=== PATIENT | male | born 1945 | race Caucasian/White ===

== ENCOUNTER 2017-06-28 15:44 | Inpatient (IN) | payer OTHER ==
[~2017-06-28] VITALS: Ht 180.3 cm; Wt 59.0 kg
--- NOTE | ~2017-06-28 | DS ---
Unit #: [id number] #: [id number] Patient: STEPH MAXWELL [id number] [facility]. [address] [address] [id number] I MR#: [id number] NAME: STEPH MAXWELL ROOM: 315 Age: 72 Sex: M Admission Date: 06/28/2017 : 1945 Discharge Date: 07/03/2017 Attending Physician: Isrrael Emanuel M.D. Primary Care Physician: Karrie Valente M.D. DISCHARGE SUMMARY DISCHARGE DIAGNOSES 1. Gastrointestinal bleed, status post Gastroenterology evaluation, status post EGD with cauterization, on b.i.d. proton pump inhibitor. Last hemoglobin and hematocrit was stable from July 02 at 9.2 and 25.8. Continue b.i.d. proton pump inhibitor. Outpatient followup with Gastroenterology. 2. Anemia secondary to #1, status post transfusion. Stable. 3. Chronic kidney disease. Stable. 4. History of coronary artery disease, status post Cardiology evaluation, status post Cardiolite stress which was negative for ischemia. Stable from cardiac standpoint to be discharged. Outpatient followup with Cardiology. DISCHARGE MEDICATIONS 1. Magnesium oxide 400 at 1 tablet b.i.d. 2. Protonix 40 mg b.i.d. 3. Home vitamin B12 at 1000 mcg p.o. daily. 4. Ferrous sulfate 1 tablet daily, home med. 5. Plavix 75 mg daily. 6. Synthroid 0.05 mg p.o. daily. 7. Nitrostat p.r.n. 8. Folic acid 1 mg daily. 9. Topical steroid cream b.i.d. 10. Flomax 0.4 mg daily. 11. Paxil 30 mg daily. 12. Claritin 10 mg daily. 13. Lipitor 40 mg at bedtime. 14. Norvasc 5 mg daily. DISPOSITION Going home, status post evaluation from PT/OT. Stable to go home with outpatient followup with primary care physician in two to three days and outpatient followup with Cardiology and GI. CONSULTS DURING THIS HOSPITAL STAY 1. Dr. St. 2. Dr. Maldonado. LABS, DIAGNOSTICS, AND PROCEDURES DURING THIS HOSPITAL STAY 1. EGD per Dr. St: Found with a large 1.8 cm posterior duodenal ulcer with a visible vessel. No active bleeding. Was injected with epinephrine. Biopsy for mild gastritis was taken. 2. CT head on admission: Atrophy with chronic ischemic changes. No clearly acute intracranial process. Unit #: [id number] #: [id number] Patient: STEPH MAXWELL 3. CT abdomen and pelvis: No acute abnormality. Please see the report. 4. Chest x-ray: Chronic changes in the lung. No active disease. HISTORY OF PRESENT HOSPITAL STAY Please refer to H and P done by my colleague, Dr. Emanuel, for initial presentation on this gentleman. ACTIVE PROBLEMS DIAGNOSED GI bleed, status post EGD report as above. Continue b.i.d. PPI. Outpatient followup with GI. Anemia, as above, status post transfusion. Stable. CKD. Stable. History of coronary artery disease, status post Cardiology evaluation, status post negative Cardiolite stress. Continue home medications. Dyslipidemia. Continue statin. DISCHARGE INSTRUCTIONS 1. Disposition home with home health. 2. Outpatient followup with Cardiology, GI, and primary care physician. 1. Dictated by... Karly Parks/rowena TD: 07/03/2017 16:33 JOB #: [id number] DISCHARGE SUMMARY Page 1 of 1 X Thiago Christian MD X DISCHARGE SUMMARY
--- NOTE | ~2017-06-28 | A ---
[facility] Nutrition Therapy DATE: 06/30/17 Patient: STEPH MAXWELL Physician: DEWAYNE Address: [address] [place] [address] Room/Bed: [address] [place] [address], Zip: [place] [address] Admit Date: 06/28/17 Date of : [birth year] Height: 5 11 Weight: 123 56.2 NUTRITIONAL ASSESSMENT: REASON: Low BMI Admitting dx: 72 y/o male admitted with generalized weakness, bloody stools, increased confusion PMH: PAD, CVA, CAD, CKD, HTN, peptic ulcer disease Anthropometrics: Ht: 71", Wt: 123 lbs, BMI: 17 (underweight), past weight ranges: 98-136 lbs Labs: BUN 28, creat 1.5, GFR 46.5 Meds: Folic acid, synthroid, PPI, IVF, Nacl, Kcl I/O & Bowel function: BM 9/3 (medium, dark) Skin Integrity: No issues, no edema Assessment: Chart reviewed, events noted. See admitting dx and PMH as stated above. CT head/abdomen/pelvis and CXR showed nothing acute. Small-moderate hiatal hernia noted. Pt found to have GI bleed. He currently lives with his sister who helps with his care. He is clinically underweight with past weights ranging from 98-136 lbs. His weight has been known to fluctuate like this over the years. RD previously assessed on 10/30/16- note reviewed. Patient weighed 135 lbs at that time. Although he scored 0 points on the malnutrition risk screen and reports no known recent weight loss, I suspect ~12 lb weight loss since the beginning of this year. He is currently NPO for possible GI scope (was on clears for 1 meal yesterday). See RD recs below, will follow. Dx: 1) Underweight r/t medical history, inconsistent PO intakes AEB BMI 17. 2) Inadequate energy intake r/t diet not yet advanced, clinical condition AEB NPO/clears x 2 days. Intervention: Diet as tolerated + ONS Monitoring, Evaluation and Goals: 1. Tolerance of oral diet advancement. 2. Gradual weight gain towards a healthy BMI range. 3. Promote regular GI fx. [facility] Nutrition Therapy DATE: 06/30/17 Patient: STEPH MAXWELL Physician: DEWAYNE Address: [address] [facility] Room/Bed: [address] [place] [address], Zip: [place] [address] Admit Date: 06/28/17 Date of : [birth year] Height: 5 11 Weight: 123 56.2 Monitor: per protocol, criteria to determine if above goals met Recommendations: 1. Once appropriate, advance oral diet as tolerated to GI soft diet. Once GI bleed resolved can change to regular diet. Appreciate GI recs. 2. Once diet is advanced to solid foods please order chocolate Ensure pudding BID to promote weight gain and ensure adequate kcal/protein intake. 3. Please weigh q 3 days for monitoring purposes, as the patient is clinically underweight. RD will follow Mild-moderate nutrition risk Respectfully, Tana Ha RD, [employer] [facility] cc: client file
--- NOTE | ~2017-06-28 | OR ---
Unit #: [id number] #: [id number] Patient: STEPH MAXWELL [id number] [address] [place], [place] [address] [id number] MR#: [id number] NAME: STEPH MAXWELL ROOM: [facility] Date of Procedure: 06/30/2017 Admission Date: 06/28/2017 Surgeon: Harshil St M.D. : 1945 Attending Physician: Isrrael Emanuel M.D. Primary Care Physician: Karrie Valente M.D. OPERATIVE REPORT PRIMARY CARE PHYSICIAN Karrie Valente M.D. PREOPERATIVE DIAGNOSES 1. The patient presented with upper gastrointestinal bleed. 2. Anemia of acute gastrointestinal blood loss. PROCEDURES PERFORMED 1. Upper gastrointestinal endoscopy and biopsy. 2. Upper gastrointestinal endoscopy and hemorrhage control. POSTOPERATIVE DIAGNOSES 1. The patient had a large 1.8 cm posterior duodenal ulcer with a visible vessel. No active bleeding was noted at the time of examination and visible vessel was ablated with heater probe application after 1:10,000 epinephrine injection intramucosally. 2. In addition, the patient had mild antral gastritis. Biopsy was obtained from the antrum for CLOtest. 3. There was also presence of medium-sized hiatus hernia. RECOMMENDATIONS We will obtain CBC at 4 p.m. and tomorrow morning. Clear liquid diet be advanced as tolerated. The patient is being started on Protonix infusion after intravenous 80 mg IV over 1 hour followed by 8 mg/hour continuous infusion. The hemoglobin and hematocrit will require sequential followup. It is very important that the patient be on long-term b.i.d. PPI therapy as he has had recurrent bleeds in the past from the same source. SEDATION USED MAC. DESCRIPTION OF PROCEDURE Following detailed explanation of the potential risks and complications of an upper endoscopy, namely perforation, bleeding, and complications related to sedation, the patient was brought to GI lab and laid in the left lateral decubitus position. Lubricated tip of the Olympus video upper endoscope was passed through bite block into the proximal esophagus under direct vision. The entire esophageal mucosa was examined and appeared normal. The patient did have a medium-sized hiatus hernia. The scope was then advanced into the gastric cavity and the latter was insufflated. Mucosa of the fundus, body, and antrum was examined and mild prepyloric antral erythema erosions noted indicating antral gastritis. Unit #: [id number] #: [id number] Patient: STEPH MAXWELL Pylorus was intubated with visualization of the normal duodenal bulb and second and third part of the duodenum. The scope was then advanced past the pylorus into the duodenum, the duodenal bulb was examined, a large posterior duodenal ulcer was noted, this was about 1.8 cm in size with grayish-white ulcer base on a clearcut visible vessel. The second and third part of duodenum were normal. Upon withdrawal and retroflexion, incisura, cardia, and greater curve examined and biopsy obtained from the antrum for CLOtest. The attention was then focused on the visible vessel after injection of 2 mL of 1:10,000 epinephrine around the vessel. The visible vessel was ablated using heater probe application. Excellent hemostasis was achieved and photodocumentation was obtained. The scope was then withdrawn in the distal esophagus. The entire esophageal mucosa was examined all the way up to pharynx, no additional findings noted. The patient tolerated the procedure without any postprocedure complications. Dictated by... Karly Varma/kelvin TD: 06/30/2017 14:04 JOB #: [id number] OPERATIVE REPORT Page 1 of [address] MD X PROCEDURE OPERATIVE NOTE
--- NOTE | ~2017-06-28 | EKG ---
PATIENT: STEPH MAXWELL UNIT #: [id number] Ventricular Rate: 85 BPM Atrial Rate: 85 BPM P-R Interval: 144 ms QRS Duration: 92 ms Q-T Interval: 424 ms QTC Calculation(Bezet): 504 ms P [place]: 72 degrees Calculated R [place]: 67 degrees Calculated T [place]: 126 degrees Diagnosis Line: Normal sinus rhythm Diagnosis Line: ST and T wave abnormality, consider anterolateral Diagnosis Line: ischemia Diagnosis Line: Prolonged QT Diagnosis Line: Abnormal ECG Diagnosis Line: When compared with ECG of 27-NOV-2016 04:36, Diagnosis Line: Premature atrial complexes are no longer Present Diagnosis Line: T wave inversion now evident in Lateral leads Diagnosis Line: Confirmed by LD GONG MD ([id number]) on Diagnosis Line: 06/29/2017 5:01:53 PM INTERPRETING MD: EDER
--- NOTE | ~2017-06-28 | CO ---
Unit #: [id number] #: [id number] Patient: STEPH CHRISTIE [id number] [facility]. [address] [place], [place] [address] [id number] I MR#: [id number] NAME: STEPH CHRISTIE ROOM: 315 Age: 72 Sex: M Admission Date: 06/28/2017 : 1945 Attending Physician: Isrrael Emanuel M.D. Primary Care Physician: Karrie Valente M.D. Consultation Date: 06/30/2017 CONSULTATION REPORT REASON FOR CONSULTATION GI bleed. PRIMARY CARE PHYSICIAN Karrie Valente M.D. HISTORY OF PRESENT ILLNESS Mr. Christie is a 72-year-old white gentleman, who is presented with history of black tarry stools, mental confusion, and anemia of acute GI blood loss. He is on long-term Plavix. The patient was transfused a unit of packed cells on admission, the hemoglobin barely increased from 7.2 to 7.4. PAST MEDICAL HISTORY Significant for history of coronary artery disease, hypertension, stroke, peripheral arterial disease, hypothyroidism, chronic kidney disease, and history of peptic ulcer disease. PAST SURGICAL HISTORY Included appendectomy, coronary artery bypass graft, cholecystectomy, rhinoplasty, right lung biopsy, bilateral lower extremity stents, open reduction and internal fixation of bilateral hip fractures, and bilateral cataract surgeries. MEDICATIONS At home included the following; Plavix, ferrous sulfate, Flomax, Norvasc, folic acid, vitamin B12, Claritin, Prilosec 40 mg p.o. daily, Synthroid, atorvastatin, hydralazine, Paxil, Nitrostat, and Claritin. ALLERGIES He has no known drug allergies. SOCIAL HISTORY The patient lives at home and does not smoke or drink alcohol. FAMILY HISTORY None of colon, pancreatic cancer, or liver disease. REVIEW OF SYSTEMS Detailed review of organ systems does not reveal any recent weight loss. No history of fever, chills, or rigors. No history of headache, seizures, chest pain, or syncope. There is history of mental confusion. No history of dysuria, hematuria, or pyuria. No history of focal seizures or extremity weakness. No history of skin rash, aphthous ulcer in mouth, or reactive arthritis. Unit #: [id number] #: [id number] Patient: STEPH CHRISTIE PHYSICAL EXAMINATION GENERAL: He is awake, alert, and oriented, and appears quite pale. VITAL SIGNS: Stable with a temperature of 98.5, pulse is 78 per minute and regular, respiratory rate is 16, blood pressure is 126/62. He weighs 125 pounds close to his baseline weight. HEENT: He has moderate pallor. There being no icterus, lymphadenopathy, or peripheral edema. CARDIOVASCULAR: Normal heart sounds. No murmurs on auscultation. LUNGS: Reveals normal breath sounds. Good air entry. ABDOMEN: Soft and nontender. Liver and spleen are not palpable. Bowel sounds normal. DIAGNOSTIC STUDIES LABORATORY RESULTS: Shows a hemoglobin of 7.2, baseline hemoglobin was 12, and red cell indices are normochromic and normocytic. The patient also had leukocytosis with left shift, and platelet count was normal at 301. INR is 1.0. Serum chemistry shows a BUN and creatinine ratio of 53 and 1.7 and sodium of 136 and potassium 3.2, albumin is 2.8. The serum iron studies showed low ferritin and transferrin and TIBC of 239. Folate level is also low and B12 level is normal. CLINICAL IMPRESSION The patient most likely has had a recurrent upper gastrointestinal bleed which is substantial while on long-term Plavix. He has also had previous history of ulcer disease, along with that he has multiple comorbidities as mentioned in past medical history. He is clearly at high risk for bleed. An emergent endoscopy therefore performed later today in the next couple of hours. Pros and cons of procedure, potential risks, complications were discussed with the patient and he was reassured. Thank you for asking me to see this pleasant gentleman. I appreciate the consult. Dictated by... Karly Varma/kelvin TD: 07/01/2017 06:22 JOB #: [id number] CONSULTATION REPORT Page 1 of [address] MD CONSULTATION REPORT
--- NOTE | ~2017-06-28 | ST ---
Unit #: [id number] #: [id number] Patient: STEPH MAXWELL [id number] [facility]. [address] [place], [place] [address] [id number] I MR#: [id number] NAME: STEPH MAXWELL : 1945 SEX: M STUDY DATE/TIME: 07/03/2017 UNIT: [id number] ROOM: [facility] STUDY DESCRIPTION: Attending Physician: Isrrael Emanuel M.D. Primary Care Physician: Karrie Valente M.D. CARDIOLOGY REPORT EXAM Lexiscan Cardiolite stress test. FINDINGS Baseline EKG: Sinus bradycardia, heart rate 58 beats per minute, left atrial abnormality, nonspecific ST-T wave abnormalities in inferolateral leads. There is T-wave inversion in V1 and V2. PROCEDURE Lexiscan is a 4-minute test with Lexiscan being injected within the first minute followed by Cardiolite. EKG during the test continued to show some nonspecific ST-T wave abnormalities but did show some 0.[address] depression in inferolateral leads. It looks like downsloping in those leads which improved at the end of recovery phase. Next, the patient had no complaints of chest pain, palpitations, or dizziness. Had increased shortness of breath and fatigueness which resolved in recovery phase. Maximum heart rate response was 81 beats per minute with a maximum blood pressure response of 181/79 mmHg. At the end of recovery phase, the patient's blood pressure was 139/71 mmHg. Next, Cardiolite was injected after Lexiscan within the first minute of the test. Radionuclide tests pending. Please correlate with nuclear images. Dictated by... Marcia Jo A.P.R.N. for Karly Kelley TD: 07/03/2017 10:56 JOB #: [id number] CARDIOLOGY REPORT Page 1 of 1 X Marcia Jo APRN CARDIOLOGY REPORT
--- NOTE | ~2017-06-28 | CO ---
Unit #: [id number] #: [id number] Patient: STEPH MAXWELL [id number] [address] [place] [id number] [facility]. [place], [place] [address] [id number] I MR#: [id number] NAME: STEPH MAXWELL ROOM: 315 Age: 72 Sex: M Admission Date: 06/28/2017 : 1945 Attending Physician: Isrrael Emanuel M.D. Primary Care Physician: Karrie Valente M.D. CONSULTATION REPORT REASON FOR CONSULTATION Arrhythmias. HISTORY OF PRESENT ILLNESS This is a 72-year-old white male, who is known to Dr. Maldonado, who has a history of myocardial infarction in 2007 where he underwent coronary artery bypass graft x4. His last cardiac testing included a Lexiscan Cardiolite stress test in 2012 that was normal. He is known to have valvular heart disease with moderate to severe mitral regurgitation that was found on echocardiogram in 2016. He has been asymptomatic. He was admitted with gastrointestinal bleed and blood loss anemia. His hemoglobin was 7.2. He has undergone endoscopy and was found to have a large duodenal ulcer that had a visible vessel that was ablated. He has received a total of 3 units of packed red blood cells. His hemoglobin is stable. He has been normotensive throughout his stay. During the course of his stay, the patient developed tachyarrhythmia that is consistent with what was felt to be ventricular tachycardia. The patient has no symptoms of angina. He denies palpitations, dizziness, syncope, or near syncope. He has no dyspnea or diaphoresis. He actually says he feels well. There was ST abnormality on his admission electrocardiogram, where there was ST depression in the anterolateral leads of V1 through V6, 1 to 1.5 mm. His initial troponin has been negative. The patient states he is fairly active, but has to ambulate with a cane. Because of stroke in the past, his gait is slightly unsteady. He denies any chest pain or dyspnea with activities. PAST MEDICAL HISTORY 1. Myocardial infarction, status post coronary artery bypass graft x4 with GUDINO to LAD, reverse saphenous vein graft to the obtuse marginal 1 and 2, saphenous vein graft to the right coronary artery. 2. Lexiscan Cardiolite stress test on 06/25/2013 showed an ejection fraction of 51%. There was no ischemia. 3. CT of the coronaries in 2008 shows calcium score of 118.5. Left main 11% to 30%. LAD 70%. Left circumflex artery with greater than 70% stenosis in the marginals. Right coronary artery 51% to 70% stenosis. All grafts were patent. 4. A 2D echocardiogram on 10/30/2016 showed an ejection fraction of 50% to 55% with myxomatous mitral valve leaflets with questionable mitral stenosis. Moderate to severe mitral regurgitation, moderate tricuspid regurgitation. Right ventricular systolic pressure 52 mmHg. 5. Hypertension. 6. Hyperlipidemia. 7. Peripheral vascular disease, status post abdominal aortic endovascular Unit #: [id number] #: [id number] Patient: STEPH MAXWELL repair. 8. Cerebrovascular accident. 9. COPD. 10. Hypothyroidism. 11. Chronic kidney disease. 12. GI bleed in 2016 secondary to ulcerative esophagitis and peptic ulcer disease. 13. Former smoker. PAST SURGICAL HISTORY 1. Appendectomy. 2. Cholecystectomy. 3. Coronary artery bypass graft. 4. Bilateral hip repair fractures. 5. ORIF of the right hip. 6. Cystoscopy. 7. Bilateral cataract extraction. 8. Rhinoplasty. 9. Right lung biopsy. SOCIAL HISTORY The patient lives with his sister. He ambulates with a cane. He was a heavy smoker, but quit 1 year ago. Has greater than 40 years history of smoking. He has a history of alcohol use, but quit in the . He denies illicit drug use. FAMILY HISTORY Negative for coronary artery disease in immediate family member. ALLERGIES No known drug allergies. HOME MEDICATIONS Loratadine 10 mg daily, vitamin B12 1000 mcg daily, folic acid 1 mg daily, Norvasc 10 mg daily, ferrous sulfate one tablet daily, Flomax 0.4 mg daily, atorvastatin 40 mg q.h.s., Plavix 75 mg daily, levothyroxine 0.05 mg daily, Prilosec 40 mg daily, hydralazine 50 mg t.i.d., Paxil 30 mg daily, Nitrostat 0.4 mg sublingual p.r.n. chest pain, triamcinolone acetonide topically b.i.d. REVIEW OF SYSTEMS CONSTITUTIONAL: Negative for fever or chills. He had a report of weakness. No fatigue. HEENT: No headache, hearing or vision change, or difficulty with swallowing. Negative for dizziness. CARDIOVASCULAR: No symptoms of angina. Denies palpitations. No paroxysmal nocturnal dyspnea or orthopnea. Denies syncope or near syncope. RESPIRATORY: Negative for dyspnea, cough, or hemoptysis. GASTROINTESTINAL: Positive for melenic stools. He has had nausea and mild abdominal discomfort on admission that has resolved. EXTREMITIES: Denies lower extremity edema. PHYSICAL EXAMINATION VITAL SIGNS: Blood pressure 143/59, heart rate 59, temperature 98.4, BMI 17. GENERAL: This is a 72-year-old pleasant white male, who is in no acute distress. NEUROLOGIC: He is awake, alert, and oriented. Noted for right facial Unit #: [id number] #: [id number] Patient: STEPH MAXWELL droop with slight left-sided weakness. NECK: Trachea is midline. No thyromegaly or lymphadenopathy. No jugular venous distention. No carotid bruits. HEART: S1 and S2. Heart sounds are normal. No murmurs, rubs, or clicks. Regular rate and rhythm. LUNGS: Clear without rales, rhonchi, or wheezing. ABDOMEN: Soft and nontender with bowel sounds present. EXTREMITIES: Without leg edema. SKIN: Warm and dry. DIAGNOSTIC STUDIES LABORATORY RESULTS: Glucose 82, BUN 14, creatinine 1.5. Sodium 141, potassium 3.9, magnesium 1.6. TSH is 3.48. Troponin is less than 0.03. White count 7.5, hemoglobin 9.2, hematocrit 25.8, platelet count 206. CARDIOVASCULAR STUDIES: EKG; normal sinus rhythm, rate of 85 beats per minute. There is ST depression in V4 through V6 on admission. Repeat EKG; sinus bradycardia, rate of 59 beats per minute. Voltage criteria for left ventricular hypertrophy. IMPRESSION 1. Blood loss anemia. 2. Gastrointestinal bleed, status post esophagogastroduodenoscopy with resultant large duodenal ulcer with exposed vessel that was ablated. 3. Nonsustained accelerated idioventricular rhythm. 4. Rule out lateral wall ischemia. 5. History of 4-vessel coronary artery bypass graft in 2006. 6. Chronic obstructive pulmonary disease. 7. Old cerebrovascular accident. 8. Chronic kidney disease. 9. Hypomagnesemia. PLAN 1. Cardiology was consulted for arrhythmias. Rhythm strip is consistent with nonsustained accelerated idioventricular rhythm. There is no evidence of ventricular tachycardia. We will proceed with Lexiscan Cardiolite study to rule out ischemia. 2. We will not treat accelerated idioventricular rhythm if no significant ischemia on Cardiolite study. 3. Replace magnesium. 4. We will follow the patient with you. Thank you for allowing us to assist with this patient's care. JOB #: [id number] Dictated by... Yash Bella A.P.R.N. for Karly Nguyen/kelvin TD: 07/03/2017 11:32 JOB #: [id number] CC: Shonda Maldonado M.D. [facility] Cardiology [facility] Unit #: [id number] #: [id number] Patient: STEPH MAXWELL CONSULTATION REPORT Page 1 of 1 X Yash Bella APRN X CONSULTATION REPORT
--- NOTE | ~2017-06-28 | CT71 ---
[facility] A Service of [facility] & [facility] RADIOLOGY TEXT RESULTS PATIENT: STEPH MAXWELL LOCATION: [facility] 315-01 : 47 UNIT #: [id number] AGE: [address]: Isrrael Emanuel MD SEX: M ORDER DR: [id number] [place] [id number] [facility]. [place], [place] [address] [id number] I MR#: [id number] #: [id number] NAME: STPEH MAXWELL : 1945 SEX: M STUDY DATE/TIME: 06/28/2017 17:34 UNIT: A U ROOM: [facility] STUDY DESCRIPTION: CT Head Wo Contrast Attending Physician: Isrrael Emanuel M.D. Ordering Physician: Nick Rivera M.D. Primary Care Physician: Karrie Valente M.D. MEDICAL IMAGING REPORT This report is preliminary unless electronic signature is present EXAM Head CT no contrast 06/28/2017 INDICATION Weakness and confusion for 2 weeks in a 72-year-old male. TECHNIQUE Noncontrast CT brain compared with 10/29/2016. This CT examination was performed with one or more of the following radiation dose reduction techniques: automatic exposure control, adjustment of mA and/or kV according to patient size, and iterative reconstruction. FINDINGS There is generalized atrophy. Sulci and ventricles otherwise within normal limits. No midline shift. No evidence of acute intracranial hemorrhage. There is no mass, mass effect or edema to suggest acute infarct. No extraaxial fluid collections are identified. Chronic ischemic changes are present in the periventricular white matter. These are more confluent adjacent to the frontal horn of the left lateral ventricle, similar to the prior study. Chronic lacunar infarcts in the thalami bilaterally. No extraaxial fluid collection. Globes intact. Bones intact. There is chronic-appearing ethmoid, sphenoid, frontal and mastoid sinus disease. IMPRESSION 1. Atrophy and chronic ischemic changes. No clearly acute intracranial process. 2. Chronic-appearing sinus disease. Dictated by... Rajendra Jhons M.D. [facility] A Service of [facility] & [facility] RADIOLOGY TEXT RESULTS PATIENT: STEPH MAXWELL LOCATION: [facility] 315-01 : [birth year] UNIT #: [id number] AGE: [address]: Isrrael Emanuel MD SEX: M ORDER DR: THIS IS AN ELECTRONICALLY VERIFIED REPORT Rajendra Johns M.D. at 06/29/2017 11:30 PM Marian TD: 06/29/2017 08:27 JOB #: [id number] MEDICAL IMAGING REPORT Page 1 of 1 COPY
--- NOTE | ~2017-06-28 | CT4 ---
[facility] A Service of [facility] RADIOLOGY TEXT RESULTS PATIENT: STEPH MAXWELL LOCATION: [facility] 315-01 : 47 UNIT #: [id number] AGE: [address]: Isrrael Emanuel MD SEX: M ORDER DR: [id number] [facility] [address] [facility]. [place], [place] [address] [id number] I MR#: [id number] #: [id number] NAME: STEPH MAXWELL : 1945 SEX: M STUDY DATE/TIME: 06/28/2017 17:38 UNIT: A PCU ROOM: [facility] STUDY DESCRIPTION: CT Abd and Pelv Wo Cont Attending Physician: Isrrael Emanuel M.D. Ordering Physician: Nick Rivera M.D. Primary Care Physician: Karrie Valente M.D. MEDICAL IMAGING REPORT This report is preliminary unless electronic signature is present EXAM CT abdomen and pelvis without IV contrast COMPARISON CT chest without IV contrast dated July 19, 2015. INDICATION 72-year-old male with dark tarry stools today. History of ulcer. Weakness and confusion for [address] imaging of the abdomen and pelvis was performed without IV contrast. Coronal and sagittal reformats were constructed. Lack of IV contrast limits evaluation of adenopathy, vasculature and viscera. This CT examination was performed with one or more of the following radiation dose reduction techniques: automatic exposure control, adjustment of mA and/or kV according to patient size, and iterative reconstruction. There has been prior cholecystectomy. Since 2014, there are new embolization coils seen anterior to the second portion of the duodenum, perhaps the site of patient's prior ulcer. There are calcified granulomas within the liver and spleen. Adrenal glands unremarkable. There is severe atrophy of the left kidney. Nonobstructive calculus inferior pole of the left kidney. This a simple exophytic cyst in the superior pole of the right kidney measuring up to 1.4 cm. Evaluation of the right kidney is limited by streak artifact from embolization coils in the right upper quadrant of the abdomen. There is a separate low-density lesion in the inferior pole of the right kidney which is too small to characterize measuring up to 6 mm. No hydronephrosis or hydroureter. No ureteral calculi. Urinary bladder is unremarkable. There is a nonspecific coarse calcification in the central prostate gland, perhaps related to remote STS. [facility] A Service of [facility] RADIOLOGY TEXT RESULTS PATIENT: STEPH MAXWELL LOCATION: [facility] 315-01 : 47 UNIT #: [id number] AGE: [address]: Isrrael Emanuel MD SEX: M ORDER DR: prostatitis. There is no evidence of bowel obstruction. Appendix is not seen in keeping with given history of appendectomy. There is a small to moderate sized hiatal hernia. No free fluid or pneumoperitoneum. There is normal caliber of the abdominal aorta which is diffusely calcified and there are diffuse calcifications involving the celiac, splenic, superior mesenteric and right renal artery origin. There is an aortobi-iliac stent. Evaluation of patency cannot be performed due to lack of IV contrast. There are bilateral iliac artery calcifications and common femoral artery as well as superficial femoral artery calcifications. There is mild multilevel degenerative facet disease of the lumbar spine. Fracture fixation hardware of the proximal right femur is incompletely imaged but appears unremarkable. There is mild dextroscoliosis of the lumbar spine. Small posterior disc protrusions at L3-L4 through L5-S1. There is emphysema. There is apparent bronchiectasis in the medial basilar segment left lower lobe is not significantly changed from June 2015. This is not well evaluated due to motion. There may be some associated interstitial opacities which are not appreciably changed from June 2015. However there appear to be increased nodular opacities in the medial basilar segment left lower lobe largest of which measures up to 5 mm. These may represent distal fluid-filled airways. IMPRESSION 1. No acute abnormality seen in the chest, abdomen or imaged lower chest. Arterial embolization coils are seen anterior to the second portion of the duodenum. 2. Severe atrophy of the left kidney with a nonobstructive left renal calculus. 3. Simple cyst in the right kidney. Separate right renal lesion is hypoattenuating but too small to characterize. 4. Prior cholecystectomy and appendectomy. 5. Changes of bi-aortoiliac stenting with extensive atherosclerotic arterial calcifications throughout the abdomen, pelvis and proximal thighs as described in the body of the report. 6. Small to moderate hiatal hernia. 7. Degenerative changes of the lumbar spine as described in the body of the report. 8. Bronchiectasis in the medial basilar segment of the left lower lobe with questionable increased nodular opacities seen inferiorly the largest of which measures up to 5 mm. These are favored to reflect actual fluid filling of the distal-most airways but given the patient's emphysema [address] chest followup without IV contrast in 1 year to document stability. Dictated by... Ran Cormier M.D. THIS IS AN ELECTRONICALLY VERIFIED REPORT [facility] A Service of [facility] RADIOLOGY TEXT RESULTS PATIENT: STEPH MAXWELL LOCATION: [facility] 315-01 : 47 UNIT #: [id number] AGE: [address]: Isrrael Emanuel MD SEX: M ORDER DR: Ran Cormier M.D. at 07/07/2017 4:25 PM FILOMENA/petr TD: 06/29/2017 09:09 JOB #: [id number] MEDICAL IMAGING REPORT Page 1 of 1 COPY
--- NOTE | ~2017-06-28 | CO ---
Unit #: [id number] #: [id number] Patient: STEPH MAXWELL [id number] [facility]. [address] [place], [place] [address] [id number] I MR#: [id number] NAME: STEPH MAXWELL ROOM: 315 Age: 72 Sex: M Admission Date: 06/28/2017 : 1945 Attending Physician: Isrrael Emanuel M.D. Primary Care Physician: Karrie Valente M.D. CONSULTATION REPORT ADDENDUM HOME MEDICATIONS Levothyroxine 0.05 mg daily, Prilosec 40 mg daily, hydralazine 50 mg t.i.d., Paxil 30 mg daily, Nitrostat 0.4 mg sublingual p.r.n. chest pain, triamcinolone acetonide topically b.i.d. REVIEW OF SYSTEMS CONSTITUTIONAL: Negative for fever or chills. He had a report of weakness. No fatigue. HEENT: No headache, hearing or vision change, or difficulty with swallowing. Negative for dizziness. CARDIOVASCULAR: No symptoms of angina. Denies palpitations. No paroxysmal nocturnal dyspnea or orthopnea. Denies syncope or near syncope. RESPIRATORY: Negative for dyspnea, cough, or hemoptysis. GASTROINTESTINAL: Positive for melenic stools. He has had nausea and mild abdominal discomfort on admission that has resolved. EXTREMITIES: Denies lower extremity edema. PHYSICAL EXAMINATION VITAL SIGNS: Blood pressure 143/59, heart rate 59, temperature 98.4, BMI 17. GENERAL: This is a 72-year-old pleasant white male, who is in no acute distress. NEUROLOGIC: He is awake, alert, and oriented. Noted for right facial droop with slight left-sided weakness. NECK: Trachea is midline. No thyromegaly or lymphadenopathy. No jugular venous distention. No carotid bruits. HEART: S1 and S2. Heart sounds are normal. No murmurs, rubs, or clicks. Regular rate and rhythm. LUNGS: Clear without rales, rhonchi, or wheezing. ABDOMEN: Soft and nontender with bowel sounds present. EXTREMITIES: Without leg edema. SKIN: Warm and dry. DIAGNOSTIC STUDIES LABORATORY RESULTS: Glucose 82, BUN 14, creatinine 1.5. Sodium 141, potassium 3.9, magnesium 1.6. TSH is 3.48. Troponin is less than 0.03. White count 7.5, hemoglobin 9.2, hematocrit 25.8, platelet count 206. CARDIOVASCULAR STUDIES: EKG; normal sinus rhythm, rate of 85 beats per minute. There is ST depression in V4 through V6 on admission. Repeat EKG; sinus bradycardia, rate of 59 beats per minute. Voltage Unit #: [id number] #: [id number] Patient: STEPH MAXWELL criteria for left ventricular hypertrophy. IMPRESSION 1. Blood loss anemia. 2. Gastrointestinal bleed, status post esophagogastroduodenoscopy with resultant large duodenal ulcer with exposed vessel that was ablated. 3. Nonsustained accelerated idioventricular rhythm. 4. Rule out lateral wall ischemia. 5. History of 4-vessel coronary artery bypass graft in 2006. 6. Chronic obstructive pulmonary disease. 7. Old cerebrovascular accident. 8. Chronic kidney disease. 9. Hypomagnesemia. PLAN 1. Cardiology was consulted for arrhythmias. Rhythm strip is consistent with nonsustained accelerated idioventricular rhythm. There is no evidence of ventricular tachycardia. We will proceed with Lexiscan Cardiolite study to rule out ischemia. 2. We will not treat accelerated idioventricular rhythm if no significant ischemia on Cardiolite study. 3. Replace magnesium. 4. We will follow the patient with you. Thank you for allowing us to assist with this patient's care. Dictated by... Rhett Cramer/kelvin TD: 07/03/2017 13:28 JOB #: [id number] CC: Shonda Maldonado M.D. [facility] CONSULTATION REPORT Page 1 of 1 X Yash Bella APRN CONSULTATION REPORT
--- NOTE | ~2017-06-28 | EKG ---
PATIENT: STEPH MAXWELL UNIT #: [id number] Ventricular Rate: 59 BPM Atrial Rate: 59 BPM P-R Interval: 132 ms QRS Duration: 86 ms Q-T Interval: 472 ms QTC Calculation(Bezet): 467 ms Calculated R [place]: 39 degrees Calculated T [place]: 56 degrees Diagnosis Line: Sinus bradycardia with occasional Premature Diagnosis Line: ventricular complexes Diagnosis Line: Nonspecific ST and T wave abnormality Diagnosis Line: Prolonged QT Diagnosis Line: Abnormal ECG Diagnosis Line: When compared with ECG of 28-JUN-2017 17:00, Diagnosis Line: Premature ventricular complexes are now Present Diagnosis Line: Non-specific change in ST segment in Inferior Diagnosis Line: leads Diagnosis Line: ST less depressed in Anterior leads Diagnosis Line: T wave inversion less evident in Anterolateral Diagnosis Line: leads Diagnosis Line: Confirmed by KHOA BRYANT MD ([id number]) on 07/09/2017 Diagnosis Line: 7:24:28 AM INTERPRETING MD: MANNY HERRERA
--- NOTE | ~2017-06-28 | CR72 ---
[facility] A Service of [facility] RADIOLOGY TEXT RESULTS PATIENT: STEPH MAXWELL LOCATION: [facility] 315- : 47 UNIT #: [id number] AGE: [address]: Isrrael Emanuel MD SEX: M ORDER DR: [id number] [facility] [address] [facility]. [place], [place] [address] [id number] I MR#: [id number] Acc #: [id number] NAME: STEPH MAXWELL : 1945 SEX: M STUDY DATE/TIME: 06/28/2017 18:02 UNIT: [address] ROOM: [facility] STUDY DESCRIPTION: CR Chest Single View Portable Attending Physician: Isrrael Emanuel M.D. Ordering Physician: Nick Rivera M.D. Primary Care Physician: Karrie Valente M.D. MEDICAL IMAGING REPORT This report is preliminary unless electronic signature is present EXAM Frontal chest 06/28/2017 INDICATION 72-year-old male with confusion, congestion and fatigue for 2 weeks. Weakness. TECHNIQUE Frontal chest compared with 11/27/2016. FINDINGS Both lung apices are partially excluded from view. Cardiac silhouette borderline in size and stable status post bypass surgery. Vascularity unremarkable. The lungs are emphysematous and there is old healed granulomatous disease. Coarsened interstitial markings bilaterally with probable fibrosis and scarring in the lung bases left greater than right. Postop changes right lung apex. No pneumothorax or effusion. There is chronic-appearing pleural thickening in the left lung apex. Probable vascular coiling procedure in the upper abdomen has occurred in the interval. IMPRESSION Chronic lung changes. No definite superimposed active disease. Postop changes in the upper lobe on the right and in the upper abdomen. Dictated by... Rajendra Johns M.D. THIS IS AN ELECTRONICALLY VERIFIED REPORT Rajendra Johns M.D. at 06/29/2017 11:23 PM DARLINGY/petr [facility] A Service of [facility] RADIOLOGY TEXT RESULTS PATIENT: STEPH MAXWELL LOCATION: [facility] 315-01 : 47 UNIT #: [id number] AGE: [address]: Isrrael Emanuel MD SEX: M ORDER DR: TD: 06/29/2017 09:02 JOB #: [id number] MEDICAL IMAGING REPORT Page 1 of 1 COPY
--- NOTE | ~2017-06-28 | TH ---
Unit #: [id number] #: [id number] Patient: STEPH MAXWELL [id number] [address] [address] [id number] I MR#: [id number] NAME: STEPH MAXWELL : 1945 SEX: M STUDY DATE/TIME: 07/03/2017 UNIT: C3A PCU ROOM: [facility] STUDY DESCRIPTION: Attending Physician: Isrrael Emanuel M.D. Primary Care Physician: Karrie Valente M.D. CARDIOLOGY REPORT EXAM Lexiscan Cardiolite stress test, nuclear portion. PROCEDURE Using technetium 99m labeled Cardiolite, rest and stress SPECT images were obtained. Multiple SPECT images were obtained in various views including horizontal and vertical long axis and short axis views of the left ventricle. Images were obtained by gated SPECT method. The patient was administered 12 mCi of Cardiolite at rest. Patient was administered 31.7 mCi of Cardiolite after Lexiscan infusion was completed. On the stress images, there is a very small area of mild decreased isotope activity in the inferoapical wall. The rest images also show a very small area of mild decreased isotope activity inferoapically. Comparing rest and stress images, there is a very small area of predominantly fixed defect seen inferoapically. No obvious stress-induced ischemia noted. The left ventricular ejection fraction is calculated to be 67%. There is no focal wall motion abnormality seen. CONCLUSION 1. No obvious stress-induced ischemia noted. 2. There is a small area of predominantly fixed defect seen inferoapically of unclear significance. 3. The left ventricular ejection fraction is calculated to be 67%. 4. There is no focal wall motion abnormality seen. 5. Normal Lexiscan Cardiolite stress test. Dictated by... Karly Kelley TD: 07/03/2017 12:51 JOB #: [id number] Unit #: [id number] #: [id number] Patient: STEPH MAXWELL CARDIOLOGY REPORT Page 1 of 1 X Shonda Maldonado MD <ELECTRONICALLY SIGNED> 07/17/17 1524 CARDIOLOGY REPORT
--- NOTE | ~2017-06-28 | HP ---
Unit #: [id number] #: [id number] Patient: STEPH MAXWELL [id number] [address] [place], [place] [address] [id number] I MR#: [id number] NAME: STEPH MAXWELL ROOM: 315 Age: 72 Sex: M Admission Date: 06/28/2017 : 1945 Attending Physician: Isrrael Emanuel M.D. Primary Care Physician: Karrie Valente M.D. HISTORY AND PHYSICAL HISTORY OF PRESENT ILLNESS The patient is a 72-year-old white male with a history of peripheral arterial disease, old CVA, chronic kidney disease, coronary artery disease, hypertension, peptic ulcer disease, presented to the emergency room per his family because of increased weakness, dark bloody stools for 36 hours, increased confusion. Denies abdominal pain, nausea, vomiting. He is on Plavix at home but no other anticoagulants and does have a history of peptic ulcer disease. He had a hemoglobin of 7.2 in the ER although it was normocytic/normochromic. He was transfused 1 unit with resultant hemoglobin of 7.4. The rest of his labs are fairly unremarkable except for some hypokalemia and a GFR of 40. Again, the patient denies any other complaints on review of systems. PAST MEDICAL HISTORY He has no known drug allergies. MEDICATIONS His meds prior to admission: 1. Claritin 10 mg p.o. daily. 2. Vitamin B12 1000 mcg p.o. daily. 3. Folic acid 1 mg p.o. daily. 4. Norvasc 10 mg p.o. daily. 5. Ferrous sulfate, dose unknown, 1 tab daily. 6. Flomax 0.4 mg daily. 7. Atorvastatin 40 mg daily. 8. Plavix 75 mg daily. 9. Synthroid 50 mcg daily. 10. Prilosec 40 mg daily. 11. Triamcinolone cream topically b.i.d. p.r.n. 12. Hydralazine 50 mg t.i.d. 13. Paxil 30 mg daily. 14. Nitrostat p.r.n. PAST MEDICAL HISTORY Again, he has a history of: 1. Coronary artery disease. 2. Hypertension. 3. CVA. 4. Peripheral arterial disease. 5. Hypothyroidism. 6. Chronic kidney disease. 7. Hypertension. 8. Peptic ulcer disease. Unit #: [id number] #: [id number] Patient: STEPH MAXWELL SURGICAL HISTORY 1. Appendectomy. 2. 4 vessel coronary artery bypass grafting. 3. Cholecystectomy. 4. Rhinoplasty. 5. Right lung biopsy. 6. Bilateral leg stents. 7. Cystoscopy. 8. Colonoscopy. 9. Open reduction internal fixation right hip fracture. 10. Bilateral hip fractures. 11. Bilateral cataract surgery. SOCIAL HISTORY He is a nonsmoker, nondrinker. No illicit drug use. PHYSICAL EXAMINATION VITAL SIGNS: Afebrile. Pulse 60, respirations 18, blood pressure 126/51. O2 sat 97% on room air. HEENT: HEENT is unremarkable except for pale mucous membranes. NECK: Neck was supple without JVD, bruits, adenopathy or thyromegaly. CHEST: Clear to auscultation. HEART: Heart has a regular rate and rhythm without any murmurs, rubs or gallops. ABDOMEN: Soft, nondistended, nontender with positive bowel sounds and no hepatosplenomegaly. EXTREMITIES: No clubbing, cyanosis or edema. AND RECTAL: Are deferred. NEUROLOGIC: Neurologic exam is grossly intact although the patient has some expressive dysphagia. DIAGNOSTIC STUDIES Lab values - random blood sugar 127. Cardiac enzymes normal x2 sets. White count 12.5 with a left shift. Hemoglobin 7.2 with normal indices and a normal RDW. PT and PTT within normal limits. Urinalysis - trace leukocytes, 2+ protein. CT scan of the head - no active disease. Chest x-ray - no active disease. Post changes in right upper lobe. CT scan of the abdomen and pelvis - no active disease. Embolization coils second part of the duodenum. Severe atrophy of the left kidney with a cyst and a small lesion too small to identify on the right kidney. Bilateral aortic stent placements. Small to moderate hiatal hernia. Bronchiectasis. CMP is normal except for potassium of 3.2, a random blood sugar of 136, a BUN of 53, creatinine 1.7, GFR 40, albumin 2.8. EKG - normal sinus rhythm, ST-T abnormality inferior and anterolateral leads which is probably no change from prior tracing. IMPRESSION Unit #: [id number] #: [id number] Patient: STEPH MAXWELL 1. Recurrent GI bleed. 2. Normocytic/normochromic anemia. 3. History of peptic ulcer disease. 4. Peripheral arterial disease. 5. Old CVA. 6. Chronic kidney disease. 7. Coronary artery disease. 8. Hypertension. 9. Hyperlipidemia. 10. Hypothyroidism. 11. Leukocytosis. 12. Hypokalemia. PLAN NPO, IV fluids, IV proton pump inhibitors, GI consult for upper endoscopy and possible lower endoscopy. Will check magnesium, replace potassium. SCDs for DVT prophylaxis. Trying to keep hemoglobin closer to 8. Will also order some iron, B12 studies because of the normocytic/normochromic anemia. Dictated by Isrrael Emanuel M.D. LISA/dwight TD: 06/29/2017 14:36 JOB #: [id number] HISTORY AND PHYSICAL Page 1 of 1 X Isrrael Emanuel MD X HISTORY AND PHYSICAL
[~2017-06-28 15:44] MED LIST: ACETAMINOPHEN325 MG PO; ADVAIR 250-501 EAC1 IH; ADVAIR 250-501 EAC1 INH; ADVAIR 2501 DISK W/D PO; ALAVERT10 MG PO; ALBUTEROL17 GM INH; ALBUTEROL20 ml INH; ALLEGRA180 MG PO; ALLERGY10 M1 PO; ALPHAGAN P5 ML OD; ANDRODERM5 MG EXT; ASPIRIN81 M1; ASPIRIN81 M1 PO; ASPIRIN81 M2 PO; ASPIRIN81 MG PO; ASPIRINEC PO; ATARAX PO; ATORVASTATIN CA40 MG PO; AVANDIA PO; B COMPLEX1 CA1 PO; B-1100 MG PO; B-121000 MC1 PO; BALANCED B-1001 TA2 PO; CARAFATE1 G PO; CARDURA PO; CARDURA4 M1 PO; CIPRO PO; CITRATE OF MAG300 ML; CLARITIN10 M2 PO; CLARITIN10 M3 PO; CLOPIDOGREL75 MG PO; DOXAZOSIN MESYLA4 MG PO; DOXYCYCLINE HY100 M3 PO; DUREZOL5 ML OP; ENALAPRIL MALE2.5 MG PO; FERRO-TIME325 MG PO; FISH OIL 1,0001 CAP PO; FLOMAX0.4 M1 PO; FOLIC ACID PO; FOLIC ACID1 MG PO; GNP B-COMPLEX1 EACH PO; HYDRALAZINE HCL50 MG PO; HYDROCODON-ACE1 EAC7 PO; HYDROCORTISONE 2.5% TOP; IBUPROFEN400 MG PO; ILEVRO1.7 ML OU; K-DUR10 MEQ PO; KCL PO; LASIX20 MG PO; LEVOTHROID25 MCG PO; LISINOPRIL PO; LISINOPRIL10 MG PO; LOPID600 MG PO; LOPRESSOR PO; LORATADINE PO; MEGACE ORA40 MG/ML S PO; METFORMIN PO; METOPROLOL TAR25 MG PO; NEPHROCAPS CAPSU1 MG PO; NIASPAN PO; NITROGLYGERIN0.4 MG SL; NITROSTAT0.4 MG SL; NORCO1 TAB 10/3 PO; NORVASC PO; NORVASC10 MG PO; OMEPRAZOLE40 MG PO; PAROXETINE HCL10 MG PO; PAXIL PO; PAXIL30 MG PO; PLAVIX PO; PLETAL100 M1 PO; PLETAL100 MG PO; PLETAL50 MG PO; PRAVACHOL; PRAVACHOL PO; PRAVASTATIN SOD40 MG PO; PRILOSEC PO; PRINIVIL10 MG PO; PROTONIX PO; SPIRIVA18 MCG INH; SYNTHROID PO; SYNTHROID0.05 MG PO; SYNTHROID25 MCG PO; TRIAMCINOLONE A TOP; VASOTEC2.5 MG PO; ZESTRIL10 M1 PO; ZOCOR PO
[2017-06-28 17:09] LABS: BASOPHIL# 0.1 X10e3 (0-0.3); BASOPHIL% 0.6 % (0-2.5); EOSINOPHIL# 0.3 X10e3 (0-0.7); EOSINOPHIL% 2.4 % (0.0-7.0); HEMATOCRIT 21.5 % (38.0-50.0); HEMOGLOBIN 7.2 gm/dL (13.0-16.0); LYMPHOCYTE# 2.2 X10e3 (1.0-3.5); LYMPHOCYTE% 17.6 % (17.0-45.0); MEAN CELL VOLUME 88.7 FL (83-96); MEAN CORPUSCULAR HEMOGLOBIN 29.6 PG (28-34); MEAN CORPUSCULAR HGB CONC 33.4 g/dL (30-36); MEAN PLATELET VOLUME 8.5 FL (6.5-11.5); MONOCYTE# 0.7 X10e3 (0-1.0); MONOCYTE% 5.3 % (3.0-12.0); NEUTROPHIL# 9.2 X10e3 (1.5-7.1); NEUTROPHIL% 74.1 % (40-75); PLATELET COUNT 301 X10e3 (140-420); RED BLOOD COUNT 2.42 X10e (3.90-5.60); RED CELL DISTRIBUTION WIDTH 14.7 % (11.0-15.5); WHITE BLOOD COUNT 12.5 X10e3 (4.0-10.5)
[2017-06-28 17:10] LABS: DIFF IND YES
[2017-06-28 17:12] LABS: POC - CKMB <1.0 ng/mL (0.0-7.9); POC - TROPONIN <0.05 ng/mL (<=0.05)
[2017-06-28 17:22] LABS: PARTIAL THROMBOPLASTIN TIME 23.4 SECONDS (23.5-31.3); PROTHROMBIN TIME (PATIENT) 11.3 SECONDS (10.0-11.7)
[2017-06-28 17:24] LABS: PLATELET ESTIMATE NORMAL (NORMAL)
[2017-06-28 17:25] LABS: ANISOCYTOSIS MOD
[2017-06-28 17:30] LABS: ALBUMIN SERUM 2.8 g/dL (3.5-5.0); BILIRUBIN, DIRECT 0.1 mg/dL (0.0-0.2); BILIRUBIN,INDIRECT 0.2 mg/dL (0.0-0.9); BILIRUBIN,TOTAL 0.3 mg/dL (0.2-2.0); BUN/CREATININE RATIO 31.17; CALCIUM SERUM 8.4 mg/dL (8.4-10.2); CREATININE SERUM 1.7 mg/dL (0.6-1.4); POTASSIUM 3.2 mmol/L (3.5-5.1); PROTEIN TOTAL SERUM 5.4 g/dL (6.0-8.3)
[2017-06-28 18:40] LABS: POC - CKMB <1.0 ng/mL (0.0-7.9); POC - TROPONIN <0.05 ng/mL (<=0.05)
[2017-06-28] MEDS ORDERED: PAXIL PO (18:57)
[2017-06-28] MEDS ORDERED: NITROSTAT0.4 MG SL (18:58)
[2017-06-28 19:00] LABS: URINE SOURCE CATH
[2017-06-28 19:07] LABS: URINE APPEARANCE CLEAR; URINE BILIRUBIN NEG (NEG); URINE BLOOD NEG (NEG); URINE COLOR YELLOW; URINE GLUCOSE NEG (NEG); URINE KETONE NEG (NEG); URINE LEUKOCYTE ESTERASE TRACE (NEG); URINE NITRATE NEG (NEG); URINE PROTEIN 2+ (NEG); URINE SPECIFIC GRAVITY 1.016 (1.003-1.035); URINE UROBILINOGEN 0.2 MG/DL (NEG)
[2017-06-28 19:10] LABS: CULTURE INDICATED? NO; U HYALINE CASTS AUWI 0-2 /[LPF]; URBCS1 AUWI 0-2 /[HPF] (0-2); URINE BACTERIA AUWI NEG (NEGATIVE); URINE SQUAMOUS EPITHELIAL CELL OCC /[HPF]; UWBCS1 AUWI 0-2 (0-5)
[2017-06-29 03:16] LABS: HEMATOCRIT 21.4 % (38.0-50.0); HEMOGLOBIN 7.4 gm/dL (13.0-16.0)
[2017-06-29 14:20] LABS: IRON SERUM 87 ug/dL (45-182); TOTAL IRON BINDING CAPACITY 239 ug/dL (252-460); TRANSFERRIN 171 mg/dL (180-329); TRANSFERRIN SATURATION 36 % (20-50)
[2017-06-29 14:31] LABS: FOLATE (FOLIC ACID) 2.8 ng/mL (>5.8)
[2017-06-30 04:58] LABS: HEMOGLOBIN 7.7 gm/dL (13.0-16.0); MEAN CELL VOLUME 87.2 FL (83-96); MEAN CORPUSCULAR HEMOGLOBIN 30.5 PG (28-34); MEAN PLATELET VOLUME 7.6 FL (6.5-11.5); RED BLOOD COUNT 2.52 X10e (3.90-5.60); RED CELL DISTRIBUTION WIDTH 14.7 % (11.0-15.5); WHITE BLOOD COUNT 6.6 X10e3 (4.0-10.5)
[2017-06-30 05:31] LABS: BUN/CREATININE RATIO 18.66; CALCIUM SERUM 8.1 mg/dL (8.4-10.2); CREATININE SERUM 1.5 mg/dL (0.6-1.4); GLOM FILT RATE Estimated 46.5 mL/min (>60); POTASSIUM 3.9 mmol/L (3.5-5.1)
[2017-06-30 17:07] LABS: HEMATOCRIT 22.9 % (38.0-50.0); HEMOGLOBIN 8.2 gm/dL (13.0-16.0); MEAN CELL VOLUME 87.8 FL (83-96); MEAN CORPUSCULAR HEMOGLOBIN 31.2 PG (28-34); MEAN CORPUSCULAR HGB CONC 35.5 g/dL (30-36); MEAN PLATELET VOLUME 7.5 FL (6.5-11.5); RED BLOOD COUNT 2.61 X10e (3.90-5.60); RED CELL DISTRIBUTION WIDTH 14.6 % (11.0-15.5); WHITE BLOOD COUNT 6.2 X10e3 (4.0-10.5)
[2017-07-01 06:37] LABS: HEMOGLOBIN 7.4 gm/dL (13.0-16.0); MEAN CELL VOLUME 87.8 FL (83-96); MEAN CORPUSCULAR HEMOGLOBIN 30.8 PG (28-34); MEAN CORPUSCULAR HGB CONC 35.1 g/dL (30-36); MEAN PLATELET VOLUME 7.8 FL (6.5-11.5); RED BLOOD COUNT 2.39 X10e (3.90-5.60); RED CELL DISTRIBUTION WIDTH 14.8 % (11.0-15.5); WHITE BLOOD COUNT 6.5 X10e3 (4.0-10.5)
[2017-07-01 06:55] LABS: ALBUMIN SERUM 2.3 g/dL (3.5-5.0); BILIRUBIN,TOTAL 0.7 mg/dL (0.2-2.0); BUN/CREATININE RATIO 9.33; CREATININE SERUM 1.5 mg/dL (0.6-1.4); GLOM FILT RATE Estimated 46.5 mL/min (>60); PROTEIN TOTAL SERUM 4.1 g/dL (6.0-8.3)
[2017-07-02 05:32] LABS: HEMATOCRIT 23.6 % (38.0-50.0); HEMOGLOBIN 8.2 gm/dL (13.0-16.0); MEAN CELL VOLUME 87.8 FL (83-96); MEAN CORPUSCULAR HEMOGLOBIN 30.5 PG (28-34); MEAN CORPUSCULAR HGB CONC 34.7 g/dL (30-36); MEAN PLATELET VOLUME 8.2 FL (6.5-11.5); RED BLOOD COUNT 2.69 X10e (3.90-5.60); RED CELL DISTRIBUTION WIDTH 14.4 % (11.0-15.5); WHITE BLOOD COUNT 7.4 X10e3 (4.0-10.5)
[2017-07-02 12:47] LABS: HEMATOCRIT 25.8 % (38.0-50.0); HEMOGLOBIN 9.2 gm/dL (13.0-16.0)
[2017-07-03] MEDS ORDERED: NORVASC PO (15:22)
[2017-07-03] MEDS ORDERED: MAGNESIUM400 M1 (15:22)
[2017-07-03] MEDS ORDERED: MAGNESIUM400 M1 PO (15:23)
[2017-07-03] MEDS ORDERED: PROTONIX PO (15:24)
[2017-07-03 15:37] LABS: HEMATOCRIT 25.1 % (38.0-50.0); HEMOGLOBIN 8.5 gm/dL (13.0-16.0)
== END 2017-07-03 18:45 | disposition home or self-care (01) | DRG 378 ==
LOC: CED 15:44 → CEDOF 18:30 → CED 18:37 → C3A PCU 20:21 → CEDOF 20:21 → C3A PCU 07-03 18:45
PROVIDERS: Emergency Medicine; Internal Medicine; Internal Medicine Gastroenterology; Physician Assistant Medical
PROC: 30233N1 Transfusion of Nonautologous Red Blood Cells into Peripheral Vein, Percutaneous Approach (ICD-10-PCS; 2017-06-28)
PROC: 0W3P8ZZ Control Bleeding in Gastrointestinal Tract, Via Natural or Artificial Opening Endoscopic (ICD-10-PCS; principal; 2017-06-30 06:41)
PROC: 0DB78ZX Excision of Stomach, Pylorus, Via Natural or Artificial Opening Endoscopic, Diagnostic (ICD-10-PCS; 2017-06-30 06:41)
PROC: 05H933Z Insertion of Infusion Device into Right Brachial Vein, Percutaneous Approach (ICD-10-PCS; 2017-07-01)
DX: K26.4 Chronic or unspecified duodenal ulcer with hemorrhage (principal); D62 Acute posthemorrhagic anemia; I34.0 Nonrheumatic mitral (valve) insufficiency; E83.42 Hypomagnesemia; J44.9 Chronic obstructive pulmonary disease, unspecified; I12.9 Hypertensive chronic kidney disease with stage 1 through stage 4 chronic kidney disease, or unspecified chronic kidney disease; N18.9 Chronic kidney disease, unspecified; I25.10 Atherosclerotic heart disease of native coronary artery without angina pectoris; Z95.1 Presence of aortocoronary bypass graft; I73.9 Peripheral vascular disease, unspecified; E78.5 Hyperlipidemia, unspecified; E03.9 Hypothyroidism, unspecified; E87.6 Hypokalemia; D72.829 Elevated white blood cell count, unspecified; I25.2 Old myocardial infarction; R00.0 Tachycardia, unspecified; Z87.891 Personal history of nicotine dependence; K29.70 Gastritis, unspecified, without bleeding; K44.9 Diaphragmatic hernia without obstruction or gangrene; Z90.49 Acquired absence of other specified parts of digestive tract; Z86.73 Personal history of transient ischemic attack (TIA), and cerebral infarction without residual deficits; Z82.49 Family history of ischemic heart disease and other diseases of the circulatory system
CPT/HCPCS: 36415; 36430; 70450; 71010; 74176; 78452; 80048; 80053; 80076; 81003; 82553; 82607; 82728; 82746; 82947; 83540; 83550; 83735; 84132; 84443; 84484; 85014; 85018; 85025; 85027; 85610; 85730; 86850; 86900; 86901; 86923; 87077; 93005; 93017; 96361; 96374; 96375; 97161; 97166; 99285; A9500; C9113; G8978-GP; G8979-GP; G8980-GP; G8987-GO; G8988-GO; G8989-GO; J0171; J2405; J2785; J3475; P9016